=== PATIENT | female | born 1990 | race Caucasian/White ===

== ENCOUNTER 2017-07-02 15:17 | Emergency (ER) | payer OTHER ==
[2017-07-02 15:28] VITALS: BP 135/71
[2017-07-02] MEDS: Sodium Chloride 0.9% 10 ML Syringe FLUSH PRN ×2 (15:55→16:30)
--- NOTE | 2017-07-02 15:56 | EDM.PDOC ---
ED HPI GENERAL MEDICAL PROBLEM - General Chief Complaint: Abdominal Pain Stated Complaint: Abdominal pain Time Seen by Provider: 07/02/17 15:35 Source of Information: Reports: Patient, RN Notes Reviewed History Limitations: Reports: No Limitations - History of Present Illness INITIAL COMMENTS - FREE TEXT/NARRATIVE: 26 year old female presents to the ED today with complaints of 3 day history of worsening RLQ abdominal pain. She says the pain initially started as bilateral lower quadrant pain but has now isolated to the RLQ. She says the pain is significantly worse today. She reports mild nausea but no vomiting. Her appetite is decreased. She denies constipation or diarrhea. She had a BM this morning. She denies fever but has felt chilled and sweaty. She denies urinary symptoms or flank pain. She had essure performed 3 years ago as a form of permanent control. She was initially evaluated at [facility] yesterday by Dr. Garcia. She had labs and a CT scan done and was told everything was normal. She was instructed to f/u if not improved in 24 hours. Treatments STUDENT LIFE COORDINATOR: Reports: Other (see below) Other Treatments STUDENT LIFE COORDINATOR: tylenol Right Lower Abdomen Pain Score (Numeric/FACES): 7 - Related Data Allergies Allergy/AdvReac Type Severity Reaction Status Date / Time No Known Allergies Allergy Verified 12/23/13 07:44 Home Meds: Home Meds oxyCODONE HCl/Acetaminophen [Percocet 5-325 mg Tablet] 1 - 2 each PO Q6H #10 tablet 07/02/17 [Rx] Past Medical History - Past Health History Medical/Surgical History: Denies Medical/Surgical History - Past Surgical History HEENT Surgical History: Reports: Adenoidectomy, Tonsillectomy Social & Family History - Tobacco Use Smoking Status *Q: Never Smoker - Caffeine Use Caffeine Use: Reports: Energy Drinks - Recreational Drug Use Recreational Drug Use: No ED ROS GENERAL - Review of Systems Review Of Systems: See Below Constitutional: Reports: Chills, Night Sweats. Denies: Fever Respiratory: Reports: No Symptoms. Denies: Shortness of Breath, Cough Cardiovascular: Reports: No Symptoms. Denies: Chest Pain GI/Abdominal: Reports: Abdominal Pain, Decreased Appetite, Nausea. Denies: Constipation, Diarrhea, Vomiting : Reports: No Symptoms. Denies: Dysuria, Flank Pain, Frequency, Urgency ED EXAM, GI/ABD - Physical Exam Exam: See Below Exam Limited By: No Limitations General Appearance: Alert, No Apparent Distress, Thin Respiratory/Chest: No Respiratory Distress, Lungs Clear, Normal Breath Sounds Cardiovascular: Regular Rate, Rhythm, No Murmur GI/Abdominal Exam: Normal Bowel Sounds, Soft, No Distention, No Mass, Guarding, Rebound, Tender, Other (Grimacing with tenderness to RLQ at McBurneys point. Positive Rosvings). No: Rigid Back Exam: Normal Inspection, Full Range of Motion. No: CVA Tenderness (L), CVA Tenderness (R) Neurological: Alert, Oriented, Normal Cognition Course - Vital Signs Last Recorded V/S: Last Vital Signs Temp 97.6 F 07/02/17 15:27 Pulse 71 07/02/17 15:27 Resp 20 07/02/17 15:27 BP 135/71 07/02/17 15:27 Pulse Ox 100 07/02/17 15:27 - Orders/Labs/Meds Orders: Active Orders 24 hr Category Date Time Status Peripheral IV Care [RC] . DIRECTED Care 07/02/17 15:49 Active CULTURE URINE [RM] Stat Lab 07/02/17 15:35 Received Sodium Chloride 0.9% [Saline Flush] Med 07/02/17 15:48 Active 10 ml FLUSH ASDIRECTED PRN Peripheral IV Insertion Adult [OM.PC] Stat Oth 07/02/17 15:49 Ordered Medication Orders Sodium Chloride (Saline Flush) 10 ml FLUSH ASDIRECTED PRN PRN Reason: Keep Vein Open Last Admin: 07/02/17 16:30 Dose: 10 ml Admin: 07/02/17 15:55 Dose: 10 ml Labs: Laboratory Tests 07/02/17 07/02/17 07/02/17 Range/Units 15:35 15:35 16:04 WBC 6.36 (3.98-10.04) K/mm3 RBC 4.92 (3.98-5.22) M/mm3 Hgb 13.8 (11.2-15.7) gm/L Hct 42.1 (34.1-44.9) % MCV 85.6 (79.4-94.8) fl MCH 28.0 (25.6-32.2) pg MCHC 32.8 (32.2-35.5) g/dl RDW Std Deviation 39.2 (36.4-46.3) fL Plt Count 269 (182-369) K/mm3 MPV 10.7 (9.4-12.3) fl Neutrophils % (Manual) 50 (40-60) % Band Neutrophils % 0 (0-10) % Lymphocytes % (Manual) 46 H (20-40) % Atypical Lymphs % 0 % Monocytes % (Manual) 1 L (2-10) % Eosinophils % (Manual) 2 (0.7-5.8) % Basophils % (Manual) 1 (0.1-1.2) Platelet Estimate Adequate RBC Morph Comment Normal Sodium (136-145) mEq/L Potassium (3.5-5.1) mEq/L Chloride (98-107) mEq/L Carbon Dioxide (21-32) mEq/L Anion Gap (5-15) BUN (7-18) mg/dL Creatinine (0.55-1.02) mg/dL Est Cr Clr Drug Dosing mL/min Estimated GFR (MDRD) (>60) mL/min BUN/Creatinine Ratio (14-18) Glucose (74-106) mg/dL Calcium (8.5-10.1) mg/dL Total Bilirubin (0.2-1.0) mg/dL AST (15-37) U/L ALT (14-59) U/L Alkaline Phosphatase (46-116) U/L C-Reactive Protein (<1.0) mg/dL Total Protein (6.4-8.2) g/dl Albumin (3.4-5.0) g/dl Globulin gm/dL Albumin/Globulin Ratio (1-2) Urine Color Yellow (Yellow) Urine Appearance Clear (Clear) Urine pH 7.0 (5.0-8.0) Ur Specific [place] 1.020 (1.005-1.030) Urine Protein Negative (Negative) Urine Glucose (UA) Negative (Negative) Urine Ketones Negative (Negative) Urine Occult Blood Negative (Negative) Urine Nitrite Negative (Negative) Urine Bilirubin Negative (Negative) Urine Urobilinogen 0.2 (0.2-1.0) Ur Leukocyte Esterase 1+ H (Negative) Urine RBC 0-5 (0-5) /hpf Urine WBC 5-10 H (0-5) /hpf Ur Epithelial Cells 0-5 (0-5) /hpf Urine Bacteria Few (FEW) /hpf Urine Mucus Few (FEW) /hpf Urine HCG, Qual Negative (NEGATIVE) 07/02/17 Range/Units 16:04 WBC (3.98-10.04) K/mm3 RBC (3.98-5.22) M/mm3 Hgb (11.2-15.7) gm/L Hct (34.1-44.9) % MCV (79.4-94.8) fl MCH (25.6-32.2) pg MCHC (32.2-35.5) g/dl RDW Std Deviation (36.4-46.3) fL Plt Count (182-369) K/mm3 MPV (9.4-12.3) fl Neutrophils % (Manual) (40-60) % Band Neutrophils % (0-10) % Lymphocytes % (Manual) (20-40) % Atypical Lymphs % % Monocytes % (Manual) (2-10) % Eosinophils % (Manual) (0.7-5.8) % Basophils % (Manual) (0.1-1.2) Platelet Estimate RBC Morph Comment Sodium 144 (136-145) mEq/L Potassium 3.6 (3.5-5.1) mEq/L Chloride 106 (98-107) mEq/L Carbon Dioxide 29 (21-32) mEq/L Anion Gap 12.6 (5-15) BUN 14 (7-18) mg/dL Creatinine 0.7 (0.55-1.02) mg/dL Est Cr Clr Drug Dosing 106.49 mL/min Estimated GFR (MDRD) > 60 (>60) mL/min BUN/Creatinine Ratio 20.0 H (14-18) Glucose 89 (74-106) mg/dL Calcium 9.2 (8.5-10.1) mg/dL Total Bilirubin 0.8 (0.2-1.0) mg/dL AST 15 (15-37) U/L ALT 19 (14-59) U/L Alkaline Phosphatase 36 L (46-116) U/L C-Reactive Protein < 0.2 (<1.0) mg/dL Total Protein 7.1 (6.4-8.2) g/dl Albumin 4.2 (3.4-5.0) g/dl Globulin 2.9 gm/dL Albumin/Globulin Ratio 1.5 (1-2) Urine Color (Yellow) Urine Appearance (Clear) Urine pH (5.0-8.0) Ur Specific [place] (1.005-1.030) Urine Protein (Negative) Urine Glucose (UA) (Negative) Urine Ketones (Negative) Urine Occult Blood (Negative) Urine Nitrite (Negative) Urine Bilirubin (Negative) Urine Urobilinogen (0.2-1.0) Ur Leukocyte Esterase (Negative) Urine RBC (0-5) /hpf Urine WBC (0-5) /hpf Ur Epithelial Cells (0-5) /hpf Urine Bacteria (FEW) /hpf Urine Mucus (FEW) /hpf Urine HCG, Qual (NEGATIVE) Meds: Medications Generic Name Dose Route Start Last Admin Trade Name Freq PRN Reason Stop Dose Admin Sodium Chloride 10 ml 07/02/17 15:48 07/02/17 16:30 Saline Flush FLUSH 10 ml ASDIRECTED PRN Administration Keep Vein Open Discontinued Medications Generic Name Dose Route Start Last Admin Trade Name Freq PRN Reason Stop Dose Admin Hydromorphone HCl 0.5 mg 07/02/17 16:24 07/02/17 16:29 Dilaudid IVPUSH 07/02/17 16:25 0.5 mg ONETIME ONE Administration - Re-Assessments/Exams Free Text/Narrative Re-Assessment/Exam: CBC, CMP and CRP are normal. Hcg negative. UA is positive for leukocytes and 5- 10 WBCs. Patient has no dysuria. Will send for culture before treating. CT read by Dr. Bolivar. Appendix appears normal. She does have a ruptured ovarian cyst which is consistent with her symptoms. She will be treated symptomatically. Educated on supportive care. Discharge instructions as documented. Departure - Departure Time of Disposition: 19:11 Disposition: Home, Self-Care 01 Condition: Good Clinical Impression: Ruptured ovarian cyst - Discharge Information Prescriptions: oxyCODONE HCl/Acetaminophen [Percocet 5-325 mg Tablet] 1 - 2 each PO Q6H #10 tablet Instructions: Ovarian Cyst, [id number] Referrals: Brock Weinstein MD [Primary Care Provider] - Forms: ED Department Discharge, ED Return to Work/School Form Additional Instructions: Ibuprofen 600mg every 8 hours as needed for pain Tylenol or Percocet as needed for break through pain Heating pad to abdomen as tolerated Follow-up with your OBGYN if your pain does not improve in the next 2-3 days - My Orders Last 24 Hours: My Active Orders 07/02/17 15:35 CULTURE URINE [RM] Stat 07/02/17 15:48 Sodium Chloride 0.9% [Saline Flush] 10 ml FLUSH ASDIRECTED PRN 07/02/17 15:49 Peripheral IV Care [RC] . DIRECTED Peripheral IV Insertion Adult [OM.PC] Stat - Assessment/Plan Last 24 Hours: My Active Orders 07/02/17 15:35 CULTURE URINE [RM] Stat 07/02/17 15:48 Sodium Chloride 0.9% [Saline Flush] 10 ml FLUSH ASDIRECTED PRN 07/02/17 15:49 Peripheral IV Care [RC] . DIRECTED Peripheral IV Insertion Adult [OM.PC] Stat
[2017-07-02] MEDS ORDERED: HYDROmorphone 0.5 MG/0.5 ML Syringe IVPUSH ONE (16:24)
--- NOTE | 2017-07-02 18:55 | CT ---
CT abdomen and pelvis Technique: Multiple axial sections were obtained from above the dome of the diaphragm inferiorly through the pubic symphysis. Oral contrast has been given. No intravenous contrast was utilized which limits solid organ evaluation. Comparison: No prior abdominal imaging. Findings: Mild increased stool is seen within the colon. Appendix is seen which appears normal. Visualized lung bases are clear. Noncontrast appearance of the liver and spleen appears within normal limits. Adrenal glands show no nodule. Kidneys show no abnormal calcifications or hydronephrosis. Pancreas is grossly unremarkable. Gallbladder shows no calcified gallstones. Aorta shows no aneurysmal dilatation. No retroperitoneal adenopathy or mesenteric abnormalities are seen. Essure devices are seen as an incidental note. No pelvic mass or adenopathy is seen. There is a fair amount of free fluid within the pelvis which appears simple by Hounsfield unit measurements and not hemorrhagic and most likely represents a nonvisualized ovarian cyst rupture or leakage. Bone window settings were reviewed which appear within normal limits for the patient's age. Impression: 1. Moderate amount of free fluid within the pelvis which appears to be simple and not hemorrhagic most likely due to nonvisualized ovarian cyst rupture or leakage. 2. Appendix appears within normal limits. 3. No additional abnormality is appreciated on CT study of the abdomen and pelvis performed without intravenous contrast. Diagnostic code #3
== END 2017-07-02 19:29 | disposition home or self-care (01) ==
LOC: JD.ED 15:17
DX: N83.209 Unspecified ovarian cyst, unspecified side (principal)
CPT/HCPCS: 36415; 74176; 80053; 81001; 81025; 85025; 86140; 87086; 96374; 99284; J1170; J7050

== ENCOUNTER 2023-12-01 08:23 | Day surgery (SDC) | payer BC, OTHER ==
[~2023-12-01 08:23] MED LIST: Sodium Chloride 0.9% 10 ML Syringe FLUSH PRN; Sodium Chloride 0.9% 10 ML Syringe FLUSH SCH
[2023-12-01] MEDS: Lactated Ringers 1,000 ML IV SCH (09:00)
[2023-12-01 09:11] LABS: BASOPHILS ABSOLUTE AUTO 0.1 K/mm3 (0.0-0.2); BASOPHILS PERCENT AUTO 0.8 % (0.0-1.0); EOSINOPHILS ABSOLUTE AUTO 0.2 K/mm3 (0.0-0.4); EOSINOPHILS PERCENT AUTO 3.5 % (0.0-6.0); HEMATOCRIT 44.9 % (37.0-47.0); HEMOGLOBIN 14.4 gm/dl (12.0-16.0); IMMATURE GRAN ABSOLUTE AUTO 0.01 K/mm3 (0.00-0.05); IMMATURE GRAN PERCENT AUTO 0.2 % (0.0-0.4); LYMPHOCYTES ABSOLUTE AUTO 2.1 K/mm3 (1.0-4.8); LYMPHOCYTES PERCENT AUTO 33.8 % (24.0-44.0); MEAN CORPUSCULAR HEMOGLOBIN 27.6 pg (28.0-32.0); MEAN CORPUSCULAR HGB CONC 32.1 g/dl (32.0-36.0); MEAN PLATELET VOLUME 10.1 fl (9.4-12.3); MONOCYTES ABSOLUTE AUTO 0.4 K/mm3 (0.0-0.8); MONOCYTES PERCENT AUTO 6.6 % (0.0-8.0); NEUTROPHILS ABSOLUTE AUTO 3.3 K/mm3 (1.8-7.7); NEUTROPHILS PERCENT AUTO 55.1 % (41.0-71.0); PLATELET COUNT,PLT 322 K/mm3 (150-400); RED BLOOD CELL COUNT 5.22 M/mm3 (4.10-5.30); WHITE BLOOD CELL COUNT,WBC 6.06 K/mm3 (3.9-11.3)
[2023-12-01 09:26] LABS: ANION GAP 13.1 (5-15); BUN/CREATININE RATIO 18.6 (14-18); CALCIUM 9.2 mg/dL (8.5-10.1); CREATININE 0.7 mg/dL (0.55-1.02); EST CRCL DRUG DOSING (CG) 109.61 mL/min
[2023-12-01] MEDS ORDERED: Propofol 200 MG/20 ML SDV ONE (09:36)
[2023-12-01] MEDS ORDERED: Lidocaine 1% 6 ML ONE (09:36)
[2023-12-01] MEDS ORDERED: Midazolam 1 MG/ML 2 ML SDV ONE (09:36)
[2023-12-01] MEDS ORDERED: fentaNYL 250 MCG/5 ML SDV ONE (09:36)
[2023-12-01] MEDS ORDERED: Rocuronium 50 MG/5 ML Vial ONE (09:37)
[2023-12-01 09:38] LABS: POTASSIUM,K 4.1 mEq/L (3.5-5.1)
[2023-12-01] MEDS ORDERED: Succinylcholine 200 MG/10 ML MDV ONE (10:28)
[2023-12-01] MEDS ORDERED: Ketorolac 30 MG/ML SDV ONE (10:50)
[2023-12-01] MEDS ORDERED: Ondansetron 4 MG/2 ML SDV ONE (10:50)
[2023-12-01] MEDS ORDERED: Metoclopramide 10 MG/2 ML SDV ONE (10:50)
[2023-12-01] MEDS: Bupivacaine 0.5% 10 ML SDV ONE (11:00)
[2023-12-01] MEDS ORDERED: Lactated Ringers 1,000 ML IV ONE (11:45)
[2023-12-01] MEDS ORDERED: HYDROmorphone 0.5 MG/0.5 ML Syringe IVPUSH PRN (12:02)
[2023-12-01] MEDS: fentaNYL 100 MCG/2 ML SDV IVPUSH PRN (12:05)
[2023-12-01] MEDS ORDERED: Acetaminophen/HYDROcodone 325-5 MG Tab PO PRN ×2 (12:17→12:21)
[2023-12-01 13:32] VITALS: BP 111/76; PULSE 74
== END 2023-12-01 13:16 | disposition home or self-care (01) ==
LOC: JD.SDS 08:23
PROVIDERS: ATTEND Obstetrics & Gynecology
DX: N83.8 Other noninflammatory disorders of ovary, fallopian tube and broad ligament (principal); J45.909 Unspecified asthma, uncomplicated; Z79.899 Other long term (current) drug therapy
CPT/HCPCS: 36415; 58579; 58661; 80048; 81025; 85025; 86850; 86900; 86901; J0330; J0665; J1885; J2250; J2405; J2704; J2765; J3010; J7030; J7120; 00840; J3490